=== PATIENT | male | born 1995 | race Asian ===

== ENCOUNTER 2016-12-06 18:38 | Emergency (ER) | payer OTHER ==
[~2016-12-06] VITALS: Ht 172.7 cm; Wt 72.6 kg
== END 2016-12-06 19:42 | disposition home or self-care (01) ==
LOC: ED 18:38
DX: J02.9 Acute pharyngitis, unspecified (principal)
CPT/HCPCS: 96372; 99283; J0561; J1885

== ENCOUNTER 2021-01-20 13:12 | Emergency (ER) | payer OTHER ==
[~2021-01-20] VITALS: Ht 175.3 cm; Wt 72.6 kg
[2021-01-20 15:45] VITALS: BP 121/74; TEMP 98.2
== END 2021-01-20 15:45 | disposition home or self-care (01) ==
LOC: ED 13:12
PROC: 0HQ1XZZ Repair Face Skin, External Approach (ICD-10-PCS; principal; 2021-01-20)
DX: S01.81XA Laceration without foreign body of other part of head, initial encounter (principal); S02.2XXA Fracture of nasal bones, initial encounter for closed fracture; W50.0XXA Accidental hit or strike by another person, initial encounter; Y93.67 Activity, basketball; Y92.89 Other specified places as the place of occurrence of the external cause
CPT/HCPCS: 90471; 90715; 99283

== ENCOUNTER 2021-01-28 11:14 | Emergency (ER) | payer OTHER ==
[~2021-01-28] VITALS: Ht 175.3 cm; Wt 77.1 kg
[2021-01-28 11:55] VITALS: BP 110/60; TEMP 97.2
== END 2021-01-28 11:55 | disposition home or self-care (01) ==
LOC: ED 11:14
DX: Z48.02 Encounter for removal of sutures (principal)